=== PATIENT | male | born 1975 | race Caucasian/White ===

== ENCOUNTER 2020-04-06 17:48 | Emergency (ER) | payer OTHER, SELFPAY ==
--- NOTE | 2020-04-06 17:57 | ED.NECK ---
HPI - Neck Pain/Injury General Chief Complaint: Neck Pain/Injury Stated Complaint: Neck pain Time Seen by Provider: 04/06/20 17:57 Source: patient and RN notes reviewed Mode of arrival: ambulatory Limitations: no limitations History of Present Illness HPI Narrative: 44-year-old male presents to urgent care with complaints of right lateral neck pain for 6-7 days. No midline tenderness. No trauma. No loss of bowel or bladder. No retention of bowel or bladder. No extremity numbness tingling. Walks with a normal gait. Patient reports that he was laying on a couch or slept on a couch and woke up started having the right-sided neck pain. Pain is worse with movements. No meningeal signs. Related Data Allergies Allergy/AdvReac Type Severity Reaction Status Date / Time No Known Allergies Allergy Verified 04/06/20 18:07 Review of Systems Review of Systems: Narrative: CONSTITUTIONAL: Denies fever, chills, or sweats. EYES: Denies visual changes, redness, or discharge. ENT: Denies rhinorrhea, congestion, sore throat, or otalgia. CARDIOVASCULAR: Denies chest pain, palpitations, or edema. RESPIRATORY: Denies cough or dyspnea. GASTROINTESTINAL: Denies abdominal pain, nausea, vomiting, or diarrhea. GENITOURINARY: Denies dysuria or hematuria. SKIN: Denies rash or itching. MUSCULOSKELETAL: Denies back pain, joint pain, or myalgia. Positive for right-sided neck pain NEUROLOGIC: Denies headache, numbness, or weakness. PSYCHIATRIC: Denies anxiety or depression. All other systems reviewed are negative, except as documented in HPI. PMFSH Comments At the time of my signature, I reviewed and agree with the nursing past medical, surgical, social, and family history. There is no relevant family history pertinent to the patient complaint. Exam Narrative: Exam Narrative: GENERAL: This is a well-nourished, well-developed patient, in no apparent distress. Morbidly obese HEAD: normocephalic, atraumatic. EYES: PERRL. Sclera clear/white. Vision is grossly intact. EARS: External ears normal, auditory canals clear and without drainage, TMs normal without perforation. Hearing grossly intact. NOSE: External nose normal with no obvious nasal discharge, nares without redness, no rhinorrhea. THROAT: Mucous membranes moist, posterior pharynx clear. NECK: Neck supple, without lymphadenopathy, masses or thyromegaly. Tenderness right lateral, trapezius into right shoulder. Worse with movements. No signs of infection. CARDIOVASCULAR: Regular rate and rhythm without murmurs, gallops, or rubs. RESPIRATORY: Clear to auscultation. Breath sounds equal bilaterally. No wheezes, rales, or rhonchi. GASTROINTESTINAL: Abdomen soft, non-tender, nondistended. Bowel sounds are active. No hepato-splenomegaly, or palpable masses. No guarding. SKIN: warm, intact with no suspicious lesions or rash, good texture and turgor. NEURO: awake, alert, and oriented to person, place and time. There were no obvious focal neurologic abnormalities. EXTREMITIES: No clubbing, cyanosis, or edema. No joint tenderness, effusion, or edema noted. No calf tenderness. Negative Homans sign bilaterally. BACK: Nontender without deformity or crepitance. No flank tenderness. Neck: Neck images: 1. Tenderness to palpation and with movement. Radiating into posterior upper back and right shoulder. Pain increases with range of motion of shoulder. Able to shrug without issue against resistance MDM - Neck Pain/Injury Differential Diagnosis Differential diagnosis: Likely disc disorder of cervical region, whiplash injury to neck, cervical radiculopathy, cervical spondylosis and strain of neck muscle Discharge Plan Discharge Clinical Impression: Strain of cervical portion of right trapezius muscle Patient Disposition: Home, Self-Care Condition: Stable Instructions: Muscle Spasm (ED) Additional Instructions: It is important that you not lift anything more than 10 pounds. It is important you follow-u
[2020-04-06 17:59] VITALS: BP 155/89; PULSE 99; RESP 20; TEMP 36.9; O2SAT 99
== END 2020-04-06 18:23 | disposition home or self-care (01) ==
PROVIDERS: Emergency Provider Nurse Practitioner
DX: S46.811A Strain of other muscles, fascia and tendons at shoulder and upper arm level, right arm, initial encounter (principal); X58.XXXA Exposure to other specified factors, initial encounter
CPT/HCPCS: 99213; G0463

== ENCOUNTER 2021-03-12 18:48 | Emergency (ER) | payer OTHER, SELFPAY ==
--- NOTE | 2021-03-12 19:22 | PC.NURSE ---
Pt called for triage for 2nd time. No answer.
== END 2021-03-13 05:28 | disposition left against medical advice (07) ==
LOC: ANHED 19:30
DX: Z53.21 Procedure and treatment not carried out due to patient leaving prior to being seen by health care provider (principal)
CPT/HCPCS: 99199

== ENCOUNTER 2024-04-08 08:04 | Emergency (ER) | payer OTHER, SELFPAY ==
--- NOTE | ~2024-04-08 | US_ITS ---
RIGHT LOWER EXTREMITY VENOUS ULTRASOUND Ordering provider: Pamela Johnson MD History: . Swollen, tender, rule out deep vein thrombosis . Comparison: None. FINDINGS: --COMMON FEMORAL: Patent and free of thrombus. Normal compressibility, phasic flow and augmentation. --PROXIMAL SUPERFICIAL FEMORAL: Patent and free of thrombus. Normal compressibility, phasic flow and augmentation. --DISTAL SUPERFICIAL FEMORAL: Patent and free of thrombus. Normal compressibility, phasic flow and au gmentation. --POPLITEAL: Patent and free of thrombus. Normal compressibility, phasic flow and augmentation. --POSTERIOR TIBIAL: Patent and free of thrombus. Normal compressibility, phasic flow and augmentation . IMPRESSION: Negative right lower extremity venous US. No deep vein thrombosis. Reviewed, dictated and finalized at location A. [employer]
--- NOTE | ~2024-04-08 | XR_ITS ---
EXAMINATION: XR chest 1V portable DATE: 04/08/2024 09:43 INDICATION: 2 days of leg swelling TECHNIQUE: frontal view of the chest was obtained. COMPARISON: None FINDINGS: The lungs are clear with no focal airspace opacities, pulmonary edema, pleural effusion or pneumothor ax. The cardiomediastinal silhouette is normal. Visualized bones and soft tissues are unremarkable. IMPRESSION: 1. No acute cardiopulmonary disease. Reviewed, dictated and finalized at location B. ESTATE LEASING MANAGER
[2024-04-08 08:09] VITALS: BP 160/91; PULSE 100; RESP 22; TEMP 36.5; O2SAT 100
[2024-04-08 08:40] LABS: Basophils Absolute Auto 0.1 K/mm3 (0.0-0.1); Basophils Percent Auto 0.7 % (0.2-1.2); Eosinophils Absolute Auto 0.3 K/mm3 (0-0.3); Eosinophils Percent Auto 3.2 % (0-4.4); Hematocrit 48.8 % (42.0-52.0); Hemoglobin 15.5 g/dL (14.0-18.0); Immature Granulocyte Absolute 0.02 K/mm3 (0.00-0.031); Immature Granulocyte Percent A 0.2 % (0-0.5); Lymphocytes Absolute Auto 3.95 K/mm3 (0.9-3.2); Lymphocytes Percent Auto 38.3 % (18.3-44.2); Mean Corpuscular HGB Conc 31.8 g/dl (32-36); Mean Corpuscular Hemoglobin 29.8 pg (26-34); Mean Corpuscular Volume 93.8 fl (80-100); Mean Platelet Volume 9.6 fl (7.4-10.4); Monocytes Percent Auto 9.8 % (2.6-8.5); Neutrophils Absolute Auto 4.9 K/mm3 (1.3-6.7); Neutrophils Percent Auto 47.8 % (45.5-73.1); Platelet Count Result 240 k/mm3 (150-375); Red Cell Distribution Width 12.4 % (11.5-14.5); White Blood Count 10.3 K/mm3 (4.5-10.0)
--- NOTE | 2024-04-08 08:45 | ED_ITS ---
HPI - Extremity Problem General Chief complaint: Extremity Problem,Nontraumatic Stated complaint: right leg swelling Time Seen by Provider: 04/08/24 08:44 Source: patient Mode of arrival: ambulatory Limitations: no limitations History of Present Illness HPI Narrative: 48 years old white male drove himself to the emergency room complaining of right leg pain and swelling started 3 days ago. Patient denies any trauma. Patient does not take medicine at home, last time was seen by Over 20 years ago. He does smoke cigarettes, denied drinking alcohol or uses drugs. Patient denies any chest pain or shortness of breath. Related Data Allergies Allergy/AdvReac Type Severity Reaction Status Date / Time No Known Allergies Allergy Verified 04/08/24 08:14 Review of Systems 2 Review of Systems: All systems reviewed & are unremarkable except as noted in HPI and below Exam 2 Narrative: General appearance: Well-developed, well-nourished Skin: Normal color Head: Normocephalic, nontraumatic Neck: Supple, nontender Chest and respiratory: Airway patent, no respiratory distress, no accessory muscle use Heart: Regular rate/rhythm Abdomen: Soft, nontender, no organomegaly, quiet bowel sounds Vascular: Normal peripheral pulses, normal capillary refill. Musculoskeletal: Right lower leg showing diffuse tenderness, swollen,, slightly erythematous, severe tenderness posteriorly,, no open wound, 1+ edema Neurologic: Alert and oriented ?3, ASSISTANT PROFESSOR OF MUSIC is normal as tested, no gross motor deficit Course Vital Signs Vital signs: Vital Signs Temperature 36.5 C 04/08/24 08:09 Pulse Rate 100 04/08/24 08:09 Respiratory Rate 22 H 04/08/24 08:09 Blood Pressure 160/91 H 04/08/24 08:09 Pulse Oximetry 100 04/08/24 08:09 Oxygen Delivery Room Air 04/08/24 08:09 Temperature 36.5 C 04/08/24 08:09 Pulse Rate 100 04/08/24 08:09 Respiratory Rate 22 H 04/08/24 08:09 Blood Pressure 160/91 H 04/08/24 08:09 Pulse Oximetry 100 04/08/24 08:09 Oxygen Delivery Room Air 04/08/24 08:09 MDM - Extremity (Nontraumatic) MDM Narrative Medical decision making narrative: Patient came to the ED with swelling and pain of the right lower leg started 3 days ago Vital signs showing blood pressure 160/91 respiratory rate 22 otherwise insignificant Physical examination showing tenderness swelling of the right lower leg compared to the left 1 Differential diagnosis include deep vein thrombosis, hematoma, cellulitis, muscular strain/sprain Blood workup today includes CBC, CMP, PT PTT showed WBC of 10.3, otherwise insignificant abnormalities venous Doppler right lower leg showed no deep vein thrombosis Chest x-ray showed no acute abnormalities. Patient pain of the right lower extremity is unknown at this time. My recommendation anti-inflammatory medicine, leg elevation, compression stocking and follow up with family physician for further evaluation. Discharge the pt was discharged to home.the pt,s condition upon discharge was fair,education was provided to the pt in reference to the final impression,discharge study results,treatment,prognosis and need for follow up . Differential Diagnosis Differential diagnosis: Likely other (As above) Lab Data 04/08/24 08:33 04/08/24 09:02 Labs: Lab Results 04/08/24 04/08/24 04/08/24 Range/Units 08:33 08:54 09:02 WBC 10.3 H (4.5-10.0) K/mm3 RBC 5.20 (4.6-6.20) M/mm3 Hgb 15.5 (14.0-18.0) g/dL Hct 48.8 (42.0-52.0) % MCV 93.8 (80-100) fl MCH 29.8 (26-34) pg MCHC 31.8 L (32-36) g/dl RDW 12.4 (11.5-14.5) % Plt Count 240 (150-375) k/mm3 MPV 9.6 (7.4-10.4) fl Immature Gran % (Auto) 0.2 (0-0.5) % Neut % (Auto) 47.8 (45.5-73.1) % Lymph % (Auto) 38.3 (18.3-44.2) % Dickinson % (Auto) 9.8 H (2.6-8.5) % Eos % (Auto) 3.2 (0-4.4) % Baso % (Auto) 0.7 (0.2-1.2) % Lymph # (Auto) 3.95 H (0.9-3.2) K/mm3 Dickinson # (Auto) 1.0 H (0.1-0.6) K/mm3 Eos # (Auto) 0.3 (0-0.3) K/mm3 Baso # (Auto) 0.1 (0.0-0.1) K/mm3 Abs Immat Gran (auto) 0.02 (0.00-0.031) K/mm3 Absolute Neuts (auto) 4.9 (1.3-6.7) K/mm3 Absolute Nucleated RBC 0.000 (0.0-0.012) K/mm3 Nucleated RBC % 0.0 (0.0-0.2) % PT (11.1-14.7) Seconds INR APTT (22.3-36.8) Seconds Sodium 136 L (137-145) mmol/L Potassium 3.9 (3.4-5.0) mmol/L Chloride 105 (98-107) mmol/L Carbon Dioxide 26 (22-30) mmol/L Anion Gap 5 (4-12) mmol/L BUN 17 (9-20) mg/dL Creatinine 0.90 (0.7-1.3) mg/dL Estim Creat Clear Calc 101 ml/min Estimated GFR > 60 (59 - ) Glucose 102 (65-110) mg/dL Lactic Acid 1.4 (0.7-2.0) mmol/L Calcium 8.2 L (8.4-10.2) mg/dL Total Bilirubin 0.5 (0.2-1.3) mg/dL AST 21 (17-59) U/L ALT 21 (6-50) U/L Alkaline Phosphatase 48 (38-126) U/L NT-Pro-B Natriuret Pep (19.9-100) pg/mL Total Protein 7.0 (6.3-8.2) g/dL Albumin 3.6 (3.5-5.1) g/dL 04/08/24 Range/Units 09:40 WBC (4.5-10.0) K/mm3 RBC (4.6-6.20) M/mm3 Hgb (14.0-18.0) g/dL Hct (42.0-52.0) % MCV (80-100) fl MCH (26-34) pg MCHC (32-36) g/dl RDW (11.5-14.5) % Plt Count (150-375) k/mm3 MPV (7.4-10.4) fl Immature Gran % (Auto) (0-0.5) % Neut % (Auto) (45.5-73.1) % Lymph % (Auto) (18.3-44.2) % Dickinson % (Auto) (2.6-8.5) % Eos % (Auto) (0-4.4) % Baso % (Auto) (0.2-1.2) % Lymph # (Auto) (0.9-3.2) K/mm3 Dickinson # (Auto) (0.1-0.6) K/mm3 Eos # (Auto) (0-0.3) K/mm3 Baso # (Auto) (0.0-0.1) K/mm3 Abs Immat Gran (auto) (0.00-0.031) K/mm3 Absolute Neuts (auto) (1.3-6.7) K/mm3 Absolute Nucleated RBC (0.0-0.012) K/mm3 Nucleated RBC % (0.0-0.2) % PT 15.2 H (11.1-14.7) Seconds INR 1.2 APTT 27.7 (22.3-36.8) Seconds Sodium (137-145) mmol/L Potassium (3.4-5.0) mmol/L Chloride (98-107) mmol/L Carbon Dioxide (22-30) mmol/L Anion Gap (4-12) mmol/L BUN (9-20) mg/dL Creatinine (0.7-1.3) mg/dL Estim Creat Clear Calc ml/min Estimated GFR (59 - ) Glucose (65-110) mg/dL Lactic Acid (0.7-2.0) mmol/L Calcium (8.4-10.2) mg/dL Total Bilirubin (0.2-1.3) mg/dL AST (17-59) U/L ALT (6-50) U/L Alkaline Phosphatase (38-126) U/L NT-Pro-B Natriuret Pep < 20 (19.9-100) pg/mL Total Protein (6.3-8.2) g/dL Albumin (3.5-5.1) g/dL Critical Care Time Critical Care Time Critical Care Time: No Discharge Plan Discharge Clinical Impression: Acute leg pain, Cellulitis of leg, right Patient Disposition: Home, Self-Care Condition: Stable Instructions: Antibiotic Form, Cellulitis (ED), Leg Pain (ED) Additional Instructions: Return if symptoms are worsening , call your family physician for appointment, take Tylenol, ibuprofen as as needed for aches and pain, continue home medications. Keep leg elevated Patient Language: Nigerian Prescriptions: New cephalexin 500 mg capsule 500 mg PO Q6H Qty: 40 0RF ibuprofen 600 mg tablet 600 mg PO Q6H PRN (Reason: pain) Qty: 20 0RF Follow-up/Referrals: Christoph Troy MD [Physician] - UNKNOWN,DOCTOR [Primary Care Provider] -
[2024-04-08 09:12] LABS: Lactic Acid Reflex 1.4 mmol/L (0.7-2.0)
[2024-04-08 09:20] LABS: Alanine Aminotransferase 21 U/L (6-50); Albumin Level 3.6 g/dL (3.5-5.1); Alkaline Phosphatase 48 U/L (38-126); Anion Gap 5 mmol/L (4-12); Aspartate Amino Transferase 21 U/L (17-59); Bilirubin,Total 0.5 mg/dL (0.2-1.3); Blood Urea Nitrogen 17 mg/dL (9-20); Calcium 8.2 mg/dL (8.4-10.2); Carbon Dioxide 26 mmol/L (22-30); Chloride 105 mmol/L (98-107); Estimated CRCL calculation 101 ml/min; Estimated Glomerular Filt Rate > 60; Glucose 102 mg/dL (65-110); Potassium 3.9 mmol/L (3.4-5.0); Sodium 136 mmol/L (137-145)
[2024-04-08 09:58] LABS: INR 1.2; Partial Thromboplastin Time 27.7 Seconds (22.3-36.8); Prothrombin Time 15.2 Seconds (11.1-14.7)
[2024-04-08 10:04] LABS: NT Pro B Type Natriuretic Pept < 20 pg/mL (19.9-100)
[2024-04-08 10:36] VITALS: BP 131/92; PULSE 69; RESP 20; O2SAT 100
== END 2024-04-08 10:40 | disposition home or self-care (01) ==
PROVIDERS: Emergency Provider Emergency Medicine
DX: L03.115 Cellulitis of right lower limb (principal); M79.661 Pain in right lower leg
CPT/HCPCS: 36415; 71045; 80053; 83605; 83880; 85025; 85610; 85730; 87040; 93971; 99284

== ENCOUNTER 2024-04-28 15:38 | Emergency (ER) | payer OTHER, SELFPAY ==
--- OUTSIDE RECORDS SUMMARY | 2024-04-28 15:41 | XMS_ITS | Referral Summary ---
Author Organization [facility] Address [address] [place] [address] Care Team Providers Care Shell Worker Name Role Phone Unavailable Primary Care Provider Unavailabl e Source Comments [facility],non-owned Affiliates and Associated Physician Practices is amultiple site organization consisting of ambulatory clinics and hospital sitesin [place], [place] and [place]. This disclosure is being madepursuant to the Care Everywhere program and may not contain all information available regarding this patient. Last updated 17.[facility] Allergies No known active allergies Medications * Be aware that medications may not be up to date on this document. Alwaysverify current medications with the patient. Medication Sig Dispensed Refills Start Date End Date Status bacitracin ointmentIndications:T raumatic amputation of left thumb, initial encounter Apply to affected area once daily (RIGHT THUMB) 14 g 1 06/20/2022 Active Active Problems No known active problems Immunizations Name Administration Dates Next Due TDAP (7yrs+) 06/12/2022 Social History Tobacco Use Types Packs/Day Years Used Date Smoking Tobacco: Every Day Cigarettes Smokeless Tobacco: Never Tobacco Cessation:Ready to Q uit: Not Asked; Counseling Given: No Sex and Gender Information Value Date Recorded Sex Assigned at Not on file Gender Identity Not on file Sexual Orientation Not on file Last Filed Vital Signs Vital Sign Reading Time Taken Comments Blood Pressure 135/93 07/25/2022 1:45 PM CDT Pulse 89 07/25/2022 1:45 PM CDT Temperature 37 ??C (98.6 ??F) 07/25/2022 1:45 PM CDT Respiratory Rate 18 07/25/2022 1:45 PM CDT Oxygen Saturation 97% 07/25/2022 1:45 PM CDT Inhaled Oxygen Concentration - - Weight 106.4 kg (234 lb 9.6 oz) 07/25/2022 1:45 PM CDT Height 172.7 cm (5' 8 ) 07/25/2022 1:45 PM CDT Body Mass Index 35.67 07/25/2022 1:45 PM CDT Plan of Treatment Not on file Procedures Procedure Name Priority Date/Time Associated Diagnosis Comments COMPREHENSIVE METABOLIC PANEL STAT 06/12/2022 3:17 PM CDT from Last 3 Months or Most Recently Relevant to Health Maintenance Results * (ABNORMAL) COMPREHENSIVE METABOLIC PANEL (06/12/2022 3:17 PM CDT) BUN 24 7 - 26 mg/dL 06/12/2022 3:54 PM [facility] Creatinine 1.18(H) 0.71 - 1.16 mg/dL 06/12/2022 3:54 PM [facility] Sodium 137 136 - 145 mmol/L 06/12/2022 3:54 PM [facility] Potassium 4.3 3.5 - 4.5 mmol/L 06/12/2022 3:54 PM [facility] Chloride 104 98 - 107 mmol/L 06/12/2022 3:54 PM [facility] CO2 27 22 - 29 mmol/L 06/12/2022 3:54 PM [facility] Glucose 93 70 - 115 mg/dL 06/12/2022 3:54 PM [facility] Calcium 8.7 8.4 - 10.2 mg/dL 06/12/2022 3:54 PM [facility] Protein Total 6.7 6.0 - 8.3 g/dL 06/12/2022 3:54 PM [facility] Albumin 3.6 3.4 - 5.0 g/dL 06/12/2022 3:54 PM [facility] Bilirubin Total 0.5 0.2 - 1.2 mg/dL 06/12/2022 3:54 PM [facility] Alkaline Phosphatase 48 40 - 150 U/L 06/12/2022 3:54 PM [facility] ALT 40 5 - 55 U/L 06/12/2022 3:54 PM [facility] AST 29 5 - 34 U/L 06/12/2022 3:54 PM [facility] Anion Gap 10 8 - 18 06/12/2022 3:54 PM [facility] BUN/Creatinine Ratio 20 7 - 23 06/12/2022 3:54 PM [facility] Osmolality Calculated 288 270 - 300 mOsm/kg 06/12/2022 3:54 PM [facility] Albumin/Globulin Ratio 1.2 1.1 - 2.3 06/12/2022 3:54 PM [facility] eGFR by CKD-EPI 77(L) >=90 mL/min/1.7 3 m2 06/12/2022 3:54 PM [facility] Blood BLOOD SPECIMEN / Unknown Venipuncture / Unknown 06/12/2022 3:17 PM CDT 06/12/2022 3:26 PM CDT Bryan Wade MD LAB - CHEMISTRY CORA MCCLAIN [facility] Organization Address City/State/ZIP Co de Phone Number [facility] [address] [place] [address], [facility] [phone] from Last 3 Months or Most Recently Relevant to Health Maintenance
--- OUTSIDE RECORDS SUMMARY | 2024-04-28 15:41 | XMS_ITS | CONTINUITY OF CARE DOCUMENT ---
Author Name ladonna dougherty Address Unknown Organization [facility] Address [address] [place] [address] Phone [phone] Care Team Providers Care Pulp And Paper Tester Name Role Phone Aamir Sheets MD Unavailable [phone] INSURANCE PROVIDERS Payer name Policy type / Coverage type [place] [employer] party ID [id number] PAY [id number]
--- OUTSIDE RECORDS SUMMARY | 2024-04-28 15:41 | XMS_ITS | Clinical Summary ---
Author Organization [facility] Address [address] [place] [address] Care Team Providers Care Equine Intern Name Role Phone Unavailable Primary Care Provider Unavailabl e Source Comments [facility],non-owned Affiliates and Associated Physician Practices is amultiple site organization consisting of ambulatory clinics and hospital sitesin [place], [place], [place] and [place]. This disclosure is being madepursuant to the Care Everywhere program and may not contain all information available regarding this patient. Last updated [facility] Allergies No known active allergies Medications * [...] 07/25/2022 1:45 PM CDT Plan of Treatment Health Maintenance Due Date Last Done Comments COLOGUARD (AGES 45-75) - COL ON CA SCREENING 1974 COLON MONITORING 1974 COLONOSCOPY - COLON CA SCREENING 1974 CT COLONOGRAPHY - COLON CA SCREENING 1974 Colorectal Cancer Screening 1974 FIT - COLON CA SCREENING 1974 FLEX SIG - COLON CA SCREENING 1974 LIPID TESTING 1974 HIV SCREENING 1989 HEPATITIS C SCREENING 08/29/1992 HEPATITIS B VACCINE (1 of 3 - 19+ 3-dose series) 1993 PNEUMOCOCCAL VACCINE (1 of 2 - PCV) 1993 COVID-19 VACCINE ( - 2023-2 5 season) 2023 INFLUENZA VACCINE (#1) 2023 DEPRESSION SCREENING 03/27/2024 ZOSTER VACCINE (1 of 2) 2024 SCREENING FOR DIABETES 06/12/2025 06/12/2022 DTAP/TDAP/TD VACCINES (2 - T d or Tdap) 06/12/2032 06/12/2022 HIB VACCINE Aged Out No longer eligi ble based on patient's age to complete this topic HPV VACCINE Aged Out No longer eligi ble based on patient's age to complete this topic MENINGOCOCCAL (Group B) VACCINE Aged Out No longer eligible based on patient's age to complete this topic MENINGOCOCCAL VACCINE Aged Out No eliza catherine eligible based on patient's age to complete this topic Procedures Procedure Name Priority Date/Time Associated Diagnosis Comments COMPREHENSIVE METABOLIC PANEL STAT 06/12/2022 3:17 PM CDT from Last 3 Months or Most Recently Relevant to Health Maintenance Results * (ABNORMAL) COMPREHENSIVE METABOLIC PANEL (06/12/2022 3:17 PM CDT) BUN 24 7 - 26 mg/dL 06/12/2022 3:54 PM [facility] Creatinine 1.18(H) 0.71 - 1.16 mg/dL 06/12/2022 3:54 PM [facility] Sodium 137 136 - 145 mmol/L 06/12/2022 3:54 PM [facility] Potassium 4.3 3.5 - 4.5 mmol/L 06/12/2022 3:54 PM [facility] Chloride 104 98 - 107 mmol/L 06/12/2022 3:54 PM [facility] CO2 27 22 - 29 mmol/L 06/12/2022 3:54 PM [facility] Glucose 93 70 - 115 mg/dL 06/12/2022 3:54 PM [facility] Calcium 8.7 8.4 - 10.2 mg/dL 06/12/2022 3:54 PM [facility] Protein Total 6.7 6.0 - 8.3 g/dL 06/12/2022 3:54 PM [facility] Albumin 3.6 3.4 - 5.0 g/dL 06/12/2022 3:54 PM [facility] Bilirubin Total 0.5 0.2 - 1.2 mg/dL 06/12/2022 3:54 PM [facility] Alkaline Phosphatase 48 40 - 150 U/L 06/12/2022 3:54 PM [facility] ALT 40 5 - 55 U/L 06/12/2022 3:54 PM [facility] AST 29 5 - 34 U/L 06/12/2022 3:54 PM [facility] Anion Gap 10 8 - 18 06/12/2022 3:54 PM [facility] BUN/Creatinine Ratio 20 7 - 23 06/12/2022 3:54 PM [facility] Osmolality Calculated 288 270 - 300 mOsm/kg 06/12/2022 3:54 PM [facility] Albumin/Globulin Ratio 1.2 1.1 - 2.3 06/12/2022 3:54 PM [facility] eGFR by CKD-EPI 77(L) >=90 mL/min/1.7 3 m2 06/12/2022 3:54 PM [facility] Blood BLOOD SPECIMEN / Unknown Venipuncture / Unknown 06/12/2022 3:17 PM CDT 06/12/2022 3:26 PM CDT Bryan Wade MD LAB - CHEMISTRY CORA MCCLAIN Performing Organization Address City/State/[facility] Co de Phone Number [facility] [address] [place] [address], [facility] [phone] from Last 3 Months or Most Recently Relevant to Health Maintenance
--- OUTSIDE RECORDS SUMMARY | 2024-04-28 15:41 | XMS_ITS | Patient Health Summary ---
Author Organization [facility] [employer] Address [address] [place] [address] Care Team Providers Care Customer Response Representative Name Role Phone Unavailable Primary Care Provider Unavailabl e Note from [facility] [employer] [facility],non-owned Affiliates and Associated Physician Practices is amultiple site organization consisting of ambulatory clinics and hospital sitesin [place], [place], [place] and [place]. This disclosure is being madepursuant to the Care Everywhere program and may not contain all information available regarding this patient. Last updated 17.[facility] [employer] Allergies No known active allergies Medications * Be aware that medications may not be up to date on this document. Alwaysverify current medications with the patient. * bacitracin ointment(Started 06/20/2022) Apply to affected area once daily (RIGHT THUMB) 1 refill by 06/20/2023 Active Problems No known active problems Immunizations * TDAP (7yrs+)(Given 06/12/2022) Social History Tobacco Use Types Packs/Day Years [...] Mass Index 35.67 07/25/2022 1:45 PM CDT Procedures * XR HAND LEFT 3VW OR MORE(Performed 06/20/2022) Performed for Thumb injury, initial encounter * TYPE + SCREEN PANEL(Performed 06/12/2022) * PT-INR [facility](Performed 06/12/2022) * COMPREHENSIVE METABOLIC PANEL(Performed 06/12/2022) * CBC W AUTO DIFFERENTIAL(Performed 06/12/2022) * XR HAND LEFT 3VW OR MORE(Performed 06/12/2022) Performed for Thumb laceration, left, initial encounter, Traumatic amputation of left thumb, initial encounter * ED DIGITAL BLOCK(Performed 06/12/2022) Performed for Traumatic amputation of left thumb, initial encounter Results * XR HAND LEFT 3VW OR MORE (06/20/2022 9:40 AM CDT) Only the most recent of2 resultswithin the time period is included. Anatomical Region Laterality Modality Wrist / Hand Radiographic Ssuan ging 06/20/2022 10:0 8 AM CDT Impressions 06/20/2022 10:53 AM CDT IMPRESSION: There is soft tissue laceration of the left thumb tip with fractures of the tuft of the distal phalanx status post treatment. Joint spaces of the left hand are normal. Report drafted by Jeff Kunz MD (vice president of advertising) I, Marlon Spencer MD have personally reviewed and interpreted this examination/study. > Interpreting Provider: Marlon Spencer MD on 06/20/2022 10:53 AM Narrative 06/20/2022 10:53 AM CDT Me PROCEDURE: ??XR HAND LEFT 3VW OR MORE, DATE/TIME OF EXAM: ??06/20/2022 9:40 AM, LOCATION ??[facility] INDICATION: S69.90XA: Thumb injury, initial encounter ADDITIONAL CLINICAL INFORMATION: COMPARISON: 06/12/2022. FINDINGS: Procedure Note Marlon Spencer MD - 06/20/2022 Me PROCEDURE: XR HAND LEFT 3VW OR MORE, DATE/TIME OF EXAM: 39:40 AM, LOCATION [facility] INDICATION: S69.90XA: Thumb injury, initial encounter ADDITIONAL CLINICAL INFORMATION: COMPARISON: 06/12/2022. FINDINGS: IMPRESSION: There is soft tissue laceration of the left thumb tip with fractures ofthe tuft of the distal phalanx status post treatment. Joint spaces of theleft hand are normal. Report drafted by Jeff Kunz MD (vice president of advertising) I, Marlon Spencer MD have personally reviewed and interpreted this examination/study. > Interpreting Provider: Marlon Spencer MD on 06/20/2022 10:53 AM Hamida Tolentino MD DIAGNOSTIC IMAGING ORDERABLES * PT-INR [facility] (06/12/2022 3:17 PM CDT) PT 14.4 12.1 - 14.8 Seconds 06/12/2022 3:49 PM CDT [facility] INR 1.1 See Comment 06/12/2022 3:49 PM CDT [facility] Comment:The suggested therap eutic range for standard coumadin (warfarin) therapy is an INR of 2.0-3.0. For high-risk patients (Mechanical Mitral Valve Prosthesis, etc.), the suggested prophylactic therapeutic range is an INR of 2.5-3.5. Blood BLOOD SPECIMEN / Unknown Venipuncture / Unknown 06/12/2022 3:17 PM CDT 06/12/2022 3:26 PM CDT Bryan Wade MD LAB - COAGULATION OR DERABLES [facility] [address] [place] [address], [facility] [phone] * TYPE + SCREEN PANEL (06/12/2022 3:17 PM CDT) Antibody Screen NEG 3:58 PM CDT [facility] B[facility] LAB ABO Rh A POS 06/12/2022 3:58 PM CDT [facility] Blood Bank BLOOD SPECIMEN / Unknown Venipuncture / Unknown 06/12/2022 3:17 PM CDT 06/12/2022 3:21 PM CDT Bryan Wade MD LAB - BLOOD BANK ORD ERABLES [facility] [address] [place] [address], [facility] [phone] * (ABNORMAL) CBC W AUTO DIFFERENTIAL (06/12/2022 3:17 PM CDT) WBC 9.6 3.5 - 10.5 10? 3 /uL 06/12/2022 3:31 PM CDT [facility] RBC 4.67 4.30 - 5.70 10? 6 /uL 06/12/2022 3:31 PM [facility] Hemoglobin 13.7 12.0 - 17.6 g/dL 06/12/2022 3:31 PM [facility] Hematocrit 42.6 35.2 - 51.7 % 06/12/2022 3:31 PM [facility] MCV 91.2 80.7 - 98.3 fL 06/12/2022 3:31 PM [facility] MCH 29.3 26.7 - 34.0 pg 06/12/2022 3:31 PM [facility] MCHC 32.2 30.8 - 35.9 g/dL 06/12/2022 3:31 PM [facility] RDW-SD 42.1 36.0 - 50.0 fL 06/12/2022 3:31 PM [facility] RDW-CV 12.7 11.2 - 14.8 % 06/12/2022 3:31 PM [facility] Platelet Count 268 150 - 400 10? 3 /uL 06/12/2022 3:31 PM [facility] MPV 9.2(L) 9.4 - 12.9 fL 06/12/2022 3:31 PM [facility] nRBC Absolute 0.00 0 10? 3 /uL 06/12/2022 3:31 PM [facility] nRBC Auto 0.0 0 /100 WBC 06/12/2022 3:31 PM CDT [facility] Neutrophils % 59.1 35.0 - 70.0 % 06/12/2022 3:31 PM [facility] Lymphocytes % 31.6 20.0 - 43.0 % 06/12/2022 3:31 PM [facility] Monocytes % 7.5 5.0 - 13.0 % 06/12/2022 3:31 PM [facility] Eosinophils % 1.0 0.0 - 6.0 % 06/12/2022 3:31 PM T [facility] Basophil % 0.5 0.0 - 2.0 % 06/12/2022 3:31 PM T [facility] Neutrophils Absolute 5.65 1.60 - 7.00 10? 3 /uL 06/12/2022 3:31 PM T [facility] Lymphocyte Absolute 3.02 1.10 - 3.90 10? 3 /uL 06/12/2022 3:31 PM CDT [facility] Monocytes Absolute 0.72 0.26 - 1.07 10? 3 /uL 06/12/2022 3:31 PM T [facility] Eosinophils Absolute 0.10 0.00 - 0.47 10? 3 /uL 06/12/2022 3:31 PM T [facility] Basophils Absolute 0.05 0.00 - 0.08 10? 3 /uL 06/12/2022 3:31 PM [facility] Immature Granulocytes % 0.3 0.0 - 1.0 % 06/12/2022 3:31 PM T [facility] Immature Granulocytes Absolute 0.03 06/12/2022 3:31 PM [facility] Blood BLOOD SPECIMEN / Unknown Venipuncture / Unknown 06/12/2022 3:17 PM CDT 06/12/2022 3:26 PM CDT Bryan Wade MD LAB - HEMATOLOGY ORD ERABLES [facility] [address] [place] [address], [facility] [phone] * (ABNORMAL) COMPREHENSIVE METABOLIC PANEL (06/12/2022 3:17 PM [facility]) BUN 24 7 - 26 mg/dL 06/12/2022 3:54 PM [facility] Creatinine 1.18(H) 0.71 - 1.16 mg/dL 06/12/2022 3:54 PM [facility] Sodium 137 136 - 145 mmol/L 06/12/2022 3:54 PM [facility] Potassium 4.3 3.5 - 4.5 mmol/L 06/12/2022 3:54 PM [facility] Chloride 104 98 - 107 mmol/L 06/12/2022 3:54 PM [facility] CO2 27 22 - 29 mmol/L 06/12/2022 3:54 PM [facility] Glucose 93 70 - 115 mg/dL 06/12/2022 3:54 PM [facility] Calcium 8.7 8.4 - 10.2 mg/dL 06/12/2022 3:54 PM [facility] Protein Total 6.7 6.0 - 8.3 g/dL 06/12/2022 3:54 PM [facility] Albumin 3.6 3.4 - 5.0 g/dL 06/12/2022 3:54 PM [facility] Bilirubin Total 0.5 0.2 - 1.2 mg/dL 06/12/2022 3:54 PM [facility] Alkaline Phosphatase 48 40 - 150 U/L 06/12/2022 3:54 PM [facility] ALT 40 5 - 55 U/L 06/12/2022 3:54 PM [facility] AST 29 5 - 34 U/L 06/12/2022 3:54 PM [facility] Anion Gap 10 8 - 18 06/12/2022 3:54 PM [facility] BUN/Creatinine Ratio 20 7 - 23 06/12/2022 3:54 PM [facility] Osmolality Calculated 288 270 - 300 mOsm/kg 06/12/2022 3:54 PM [facility] Albumin/Globulin Ratio 1.2 1.1 - 2.3 06/12/2022 3:54 PM [facility] eGFR by CKD-EPI 77(L) >=90 mL/min/1.7 3 m2 06/12/2022 3:54 PM CDT [facility] Blood BLOOD SPECIMEN / Unknown Venipuncture / Unknown 06/12/2022 3:17 PM CDT 06/12/2022 3:26 PM CDT Bryan Wade MD LAB - CHEMISTRY [facility] Performing Organization Address City/[facility] Co de Phone Number [facility] [address] [place] [address], [facility] [phone] * Digital Block (06/12/2022 11:51 AM CDT) Narrative Rain Reddy MD - 06/12/2022 11:51 AM CDT Rain Reddy MD ? 06/12/2022 ??3:41 PM Digital Block Date/Time: 06/12/2022 11:51 AM Performed by: Rain Reddy MD Authorized by: Rain Reddy MD Consent: ??Consent obtained: ??Verbal ??Consent given by: ??Patient ??Risks discussed: ??Infection, allergic reaction, nerve damage, intravascular injection and unsuccessful block ??Alternatives discussed: ??No treatment [place] protocol: ??Patient identity confirmed: ??Verbally with patient Indications: ??Indications: ??Pain relief Location: ??Block location: ??Finger ??Finger blocked: ??L thumb Pre-procedure details: ??Neurovascular status: intact ?Procedure prep: ChloraPrep x2. Procedure details: ??Needle gauge: ??27 G ??Anesthetic injected: ??Lidocaine 1% w/o epi ??Technique: ??Metacarpal block ??Injection procedure: ??Incremental injection, negative aspiration for blood and anatomic landmarks identified Post-procedure details: ??Outcome: ??Pain relieved ??Procedure completion: ??Tolerated well, no immediate complications Rain Reddy MD PROCEDURE/MINOR SOMMRE RGICAL ORDERABLES
[2024-04-28 16:43] VITALS: BP 133/90; PULSE 108; RESP 18; TEMP 36.4; O2SAT 99
--- NOTE | 2024-04-28 19:43 | PC.NURSE ---
1st call for a room, no answer.
--- NOTE | 2024-04-28 20:13 | PC.NURSE ---
2nd call no answer
--- OUTSIDE RECORDS SUMMARY | 2024-04-28 20:32 | XMS_ITS | Referral Summary ---
Author Organization [facility] Address [address] [place] [address] Care Team Providers Care Audio Visual Director Name Role Phone Unavailable Primary Care Provider Unavailabl e Source Comments [facility],non-owned Affiliates and Associated Physician Practices is amultiple site organization consisting of ambulatory clinics and hospital sitesin [place], [place], [place] and [place]. This disclosure is being madepursuant to the Care Everywhere program and may not contain all information available regarding this patient. Last updated 17.[employer] [facility] Allergies No known active allergies Medications * [...] 7 - 26 mg/dL 06/12/2022 3:54 PM [facility] Creatinine 1.18(H) 0.71 - 1.16 mg/dL 06/12/2022 3:54 PM [facility] Sodium 137 136 - 145 mmol/L 06/12/2022 3:54 PM [facility] Potassium 4.3 3.5 - 4.5 mmol/L 06/12/2022 3:54 PM [facility] Chloride 104 98 - 107 mmol/L 06/12/2022 3:54 PM [facility] CO2 27 22 - 29 mmol/L 06/12/2022 3:54 PM [facility] Glucose 93 70 - 115 mg/dL 06/12/2022 3:54 PM [facility] Calcium 8.7 8.4 - 10.2 mg/dL 06/12/2022 3:54 PM [facility] Protein Total 6.7 6.0 - 8.3 g/dL 06/12/2022 3:54 PM [facility] Albumin 3.6 3.4 - 5.0 g/dL 06/12/2022 3:54 PM [facility] Bilirubin Total 0.5 0.2 - 1.2 mg/dL 06/12/2022 3:54 PM [facility] Alkaline Phosphatase 48 40 - 150 U/L 06/12/2022 3:54 PM [facility] ALT 40 5 - 55 U/L 06/12/2022 3:54 PM [facility] AST 29 5 - 34 U/L 06/12/2022 3:54 PM [facility] Anion Gap 10 8 - 18 06/12/2022 3:54 PM [facility] BUN/Creatinine Ratio 20 7 - 23 06/12/2022 3:54 PM T [facility] Osmolality Calculated 288 270 - 300 mOsm/kg 06/12/2022 3:54 PM [facility] Albumin/Globulin Ratio 1.2 1.1 - 2.3 06/12/2022 3:54 PM [facility] eGFR by CKD-EPI 77(L) >=90 mL/min/1.7 3 m2 06/12/2022 3:54 PM [facility] Blood BLOOD SPECIMEN / Unknown Venipuncture / Unknown 06/12/2022 3:17 PM CDT 06/12/2022 3:26 PM CDT Bryan Wade MD LAB - CHEMISTRY [facility] Organization Address City/State/ZIP Co de Phone Number [facility] [address] [place] [address], [facility] [phone] from Last 3 Months or Most Recently Relevant to Health Maintenance
--- OUTSIDE RECORDS SUMMARY | 2024-04-28 20:32 | XMS_ITS | Patient Health Summary ---
Author Organization [facility] Address [address] [place] [address] Care Team Providers Care Insulation Worker Apprentice Name Role Phone Unavailable Primary Care Provider Unavailabl e Note from [facility],non-owned Affiliates and Associated Physician Practices is amultiple site organization consisting of ambulatory clinics and hospital sitesin [place], [place], [place] and [place]. This disclosure is being madepursuant to the Care Everywhere program and may not contain all information available regarding this patient. Last updated 17.[facility] Allergies No known active allergies Medications * [...] Region Laterality Modality Wrist / Hand Radiographic Susan ging 06/20/2022 10:0 8 AM CDT Impressions 06/20/2022 10:53 AM CDT IMPRESSION: There is soft tissue laceration of the left thumb tip with fractures of the tuft of the distal phalanx status post treatment. Joint spaces of the left hand are normal. Report drafted by Jeff Kunz MD (university president) I, Marlon Spencer MD have personally reviewed and interpreted this examination/study. > Interpreting Provider: Marlon Spencer MD on 06/20/2022 10:53 AM Narrative 06/20/2022 10:53 AM CDT Me PROCEDURE: ??XR HAND LEFT 3VW OR MORE, DATE/TIME OF EXAM: ??06/20/2022 9:40 AM, LOCATION ??[facility] INDICATION: S69.90XA: Thumb injury, initial encounter ADDITIONAL CLINICAL INFORMATION: COMPARISON: 06/12/2022. FINDINGS: Procedure Note Marlon Spencer MD - 06/20/2022 Me PROCEDURE: XR HAND LEFT 3VW OR MORE, DATE/TIME OF EXAM: 39:40 AM, LOCATION [facility] INDICATION: S69.90XA: Thumb injury, initial encounter ADDITIONAL CLINICAL INFORMATION: COMPARISON: 06/12/2022. FINDINGS: IMPRESSION: There is soft tissue laceration of the left thumb tip with fractures ofthe tuft of the distal phalanx status post treatment. Joint spaces of theleft hand are normal. Report drafted by Jeff Kunz MD (university president) I, Marlon Spencer MD have personally reviewed and interpreted this examination/study. > Interpreting Provider: Marlon Spencer MD on 06/20/2022 10:53 AM Hamida Tolentino MD DIAGNOSTIC IMAGING ORDERABLES * PT-INR [facility] (06/12/2022 3:17 PM CDT) PT 14.4 12.1 - 14.8 Seconds 06/12/2022 3:49 PM CDT [facility] INR 1.1 See Comment 06/12/2022 3:49 PM CDT [facility] Comment:The suggested therap eutic range for standard coumadin (warfarin) therapy is an INR of 2.0-3.0. For high-risk patients (Mechanical Mitral Valve Prosthesis, etc.), the suggested prophylactic therapeutic range is an INR of 2.5-3.5. Blood BLOOD SPECIMEN / Unknown Venipuncture / Unknown 06/12/2022 3:17 PM CDT 06/12/2022 3:26 PM CDT Brayn Wade MD LAB - COAGULATION OR DERABLES [facility] [address] [place] [address], [facility] [phone] * TYPE + SCREEN PANEL (06/12/2022 3:17 PM CDT) Antibody Screen NEG 3:58 PM CDT [facility] BLOOD BANK LAB ABO Rh A POS 06/12/2022 3:58 PM CDT [facility] BLOOD BANK LAB Blood Bank BLOOD SPECIMEN / Unknown Venipuncture / Unknown 06/12/2022 3:17 PM CDT 06/12/2022 3:21 PM CDT Bryan Wade MD LAB - BLOOD BANK ORD ERABLES [facility] [address] [place] [address], [facility] [phone] * (ABNORMAL) CBC W AUTO DIFFERENTIAL (06/12/2022 3:17 PM CDT) WBC 9.6 3.5 - 10.5 10? 3 /uL 06/12/2022 3:31 PM CDT [facility] RBC 4.67 4.30 - 5.70 10? 6 /uL 06/12/2022 3:31 PM [facility] Hemoglobin 13.7 12.0 - 17.6 g/dL 06/12/2022 3:31 PM [facility] Hematocrit 42.6 35.2 - 51.7 % 06/12/2022 3:31 PM [facility] MCV 91.2 80.7 - 98.3 fL 06/12/2022 3:31 PM [facility] MCH 29.3 26.7 - 34.0 pg 06/12/2022 3:31 PM [facility] MCHC 32.2 30.8 - 35.9 g/dL 06/12/2022 3:31 PM [facility] RDW-SD 42.1 36.0 - 50.0 fL 06/12/2022 3:31 PM [facility] RDW-CV 12.7 11.2 - 14.8 % 06/12/2022 3:31 PM [facility] Platelet Count 268 150 - 400 10? 3 /uL 06/12/2022 3:31 PM [facility] MPV 9.2(L) 9.4 - 12.9 fL 06/12/2022 3:31 PM [facility] nRBC Absolute 0.00 0 10? 3 /uL 06/12/2022 3:31 PM [facility] nRBC Auto 0.0 0 /100 WBC 06/12/2022 3:31 PM CDT [facility] Neutrophils % 59.1 35.0 - 70.0 % 06/12/2022 3:31 PM [facility] Lymphocytes % 31.6 20.0 - 43.0 % 06/12/2022 3:31 PM [facility] Monocytes % 7.5 5.0 - 13.0 % 06/12/2022 3:31 PM [facility] Eosinophils % 1.0 0.0 - 6.0 % 06/12/2022 3:31 PM T [facility] Basophil % 0.5 0.0 - 2.0 % 06/12/2022 3:31 PM T [facility] Neutrophils Absolute 5.65 1.60 - 7.00 10? 3 /uL 06/12/2022 3:31 PM T [facility] Lymphocyte Absolute 3.02 1.10 - 3.90 10? 3 /uL 06/12/2022 3:31 PM CDT [facility] Monocytes Absolute 0.72 0.26 - 1.07 10? 3 /uL 06/12/2022 3:31 PM T [facility] Eosinophils Absolute 0.10 0.00 - 0.47 10? 3 /uL 06/12/2022 3:31 PM T [facility] Basophils Absolute 0.05 0.00 - 0.08 10? 3 /uL 06/12/2022 3:31 PM [facility] Immature Granulocytes % 0.3 0.0 - 1.0 % 06/12/2022 3:31 PM T [facility] Immature Granulocytes Absolute 0.03 06/12/2022 3:31 PM [facility] Blood BLOOD SPECIMEN / Unknown Venipuncture / Unknown 06/12/2022 3:17 PM CDT 06/12/2022 3:26 PM CDT Bryan Wade MD LAB - HEMATOLOGY ORD ERABLES [facility] [address] [place] [address], [facility] [phone] * (ABNORMAL) COMPREHENSIVE METABOLIC PANEL (06/12/2022 3:17 PM [facility]) BUN 24 7 - 26 mg/dL 06/12/2022 3:54 PM [facility] Creatinine 1.18(H) 0.71 - 1.16 mg/dL 06/12/2022 3:54 PM [facility] Sodium 137 136 - 145 mmol/L 06/12/2022 3:54 PM [facility] Potassium 4.3 3.5 - 4.5 mmol/L 06/12/2022 3:54 PM [facility] Chloride 104 98 - 107 mmol/L 06/12/2022 3:54 PM [facility] CO2 27 22 - 29 mmol/L 06/12/2022 3:54 PM [facility] Glucose 93 70 - 115 mg/dL 06/12/2022 3:54 PM [facility] Calcium 8.7 8.4 - 10.2 mg/dL 06/12/2022 3:54 PM [facility] Protein Total 6.7 6.0 - 8.3 g/dL 06/12/2022 3:54 PM [facility] Albumin 3.6 3.4 - 5.0 g/dL 06/12/2022 3:54 PM [facility] Bilirubin Total 0.5 0.2 - 1.2 mg/dL 06/12/2022 3:54 PM [facility] Alkaline Phosphatase 48 40 - 150 U/L 06/12/2022 3:54 PM [facility] ALT 40 5 - 55 U/L 06/12/2022 3:54 PM [facility] AST 29 5 - 34 U/L 06/12/2022 3:54 PM [facility] Anion Gap 10 8 - 18 06/12/2022 3:54 PM [facility] BUN/Creatinine Ratio 20 7 - 23 06/12/2022 3:54 PM [facility] Osmolality Calculated 288 270 - 300 mOsm/kg 06/12/2022 3:54 PM [facility] Albumin/Globulin Ratio 1.2 1.1 - 2.3 06/12/2022 3:54 PM [facility] eGFR by CKD-EPI 77(L) >=90 mL/min/1.7 3 m2 06/12/2022 3:54 PM CDT [facility] Blood BLOOD SPECIMEN / Unknown Venipuncture / Unknown 06/12/2022 3:17 PM CDT 06/12/2022 3:26 PM CDT Bryan Wade MD LAB - CHEMISTRY [facility]A [facility]LAIN Performing Organization Address City/[facility] Co de Phone Number [facility] [address] [place] [address], [facility] [phone] * Digital Block (06/12/2022 11:51 AM CDT) Narrative Rain Reddy MD - 06/12/2022 11:51 AM CDT Rain Reddy MD ? 06/12/2022 ??3:41 PM Digital Block Date/Time: 06/12/2022 11:51 AM Performed by: Rain Reddy MD Authorized by: Rain Reddy MD Consent: ??Consent obtained: ??Verbal ??Consent given by: ??Patient ??Risks discussed: ??Infection, allergic reaction, nerve damage, intravascular injection and unsuccessful block ??Alternatives discussed: ??No treatment [place] protocol: ??Patient identity confirmed: ??Verbally with patient [...] no immediate complications Rain Reddy MD PROCEDURE/MINOR SOMMER RGICAL ORDERABLES
--- OUTSIDE RECORDS SUMMARY | 2024-04-28 20:33 | XMS_ITS | Clinical Summary ---
Author Organization [facility] [employer] Address [address] [place] [address] Care Team Providers Care Marketing Account Manager Name Role Phone Unavailable Primary Care Provider Unavailabl e Source Comments [facility] [employer],non-owned Affiliates and Associated Physician Practices is amultiple site organization consisting of ambulatory clinics and hospital sitesin [place], [place], [place] and [place]. This disclosure is being madepursuant to the Care Everywhere program and may not contain all information available regarding this patient. Last updated 17.[employer] Allergies No known active allergies Medications * [...] - 26 mg/dL 06/12/2022 3:54 PM [facility] Creatinine 1.18(H) 0.71 - 1.16 mg/dL 06/12/2022 3:54 PM [facility] Sodium 137 136 - 145 mmol/L 06/12/2022 3:54 PM [facility] Potassium 4.3 3.5 - 4.5 mmol/L 06/12/2022 3:54 PM [facility] Chloride 104 98 - 107 mmol/L 06/12/2022 3:54 PM [facility] CO2 27 22 - 29 mmol/L 06/12/2022 3:54 PM [facility] Glucose 93 70 - 115 mg/dL 06/12/2022 3:54 PM [facility] Calcium 8.7 8.4 - 10.2 mg/dL 06/12/2022 3:54 PM [facility] Protein Total 6.7 6.0 - 8.3 g/dL 06/12/2022 3:54 PM [facility] Albumin 3.6 3.4 - 5.0 g/dL 06/12/2022 3:54 PM [facility] Bilirubin Total 0.5 0.2 - 1.2 mg/dL 06/12/2022 3:54 PM [facility] Alkaline Phosphatase 48 40 - 150 U/L 06/12/2022 3:54 PM [facility] ALT 40 5 - 55 U/L 06/12/2022 3:54 PM [facility] AST 29 5 - 34 U/L 06/12/2022 3:54 PM [facility] Anion Gap 10 8 - 18 06/12/2022 3:54 PM [facility] BUN/Creatinine Ratio 20 7 - 23 06/12/2022 3:54 PM [facility] Osmolality Calculated 288 270 - 300 mOsm/kg 06/12/2022 3:54 PM [facility] Albumin/Globulin Ratio 1.2 1.1 - 2.3 06/12/2022 3:54 PM [facility] eGFR by CKD-EPI 77(L) >=90 mL/min/1.7 3 m2 06/12/2022 3:54 PM [facility] Blood BLOOD SPECIMEN / Unknown Venipuncture / Unknown 06/12/2022 3:17 PM CDT 06/12/2022 3:26 PM CDT Bryan Wade MD LAB - CHEMISTRY CORA MCCLAIN Performing Organization Address City/State/[facility] Co de Phone Number [facility] [address] [place] [address], [facility] [phone] from Last 3 Months or Most Recently Relevant to Health Maintenance
--- OUTSIDE RECORDS SUMMARY | 2024-04-28 20:33 | XMS_ITS | CONTINUITY OF CARE DOCUMENT ---
Author Name ladonna dougherty Address Unknown Organization [facility] Address [address] [place] [address] Phone [phone] Care Team Providers Care Gold Reclaimer Name Role Phone Aamir Sheets MD Unavailable INSURANCE PROVIDERS Payer name Policy type / Coverage type [place] [employer] party ID [id number] PAY [id number]
== END 2024-04-28 20:34 | disposition left against medical advice (07) ==
LOC: ANHED 20:30
DX: L03.115 Cellulitis of right lower limb (principal)
CPT/HCPCS: 99199

== ENCOUNTER 2024-08-17 10:33 | Emergency (ER) | payer OTHER, SELFPAY ==
--- OUTSIDE RECORDS SUMMARY | 2024-08-17 10:34 | XMS_ITS | CONTINUITY OF CARE DOCUMENT ---
Author Name ladonna dougherty Address Unknown Organization [facility] Address [address] [place] [address] Phone [phone] Care Team Providers Care Bioinformatics Software Engineer Name Role Phone Aamir Sheets MD Unavailable [phone] INSURANCE PROVIDERS Payer name Policy type / Coverage type [place] red green party ID [id number] PAY [id number]
--- OUTSIDE RECORDS SUMMARY | 2024-08-17 10:34 | XMS_ITS | Clinical Summary ---
Author Organization [facility] Address [address] [place] [address] Care Team Providers Care Dental Assisting Instructor Name Role Phone Unavailable Primary Care Provider Unavailabl e Source Comments [facility],non-owned Affiliates and Associated Physician Practices is amultiple site organization consisting of ambulatory clinics and hospital sitesin [place], [place], [place] and [place]. This disclosure is being madepursuant to the Care Everywhere program and may not contain all informatio navailable regarding this patient. Last updated 17.Definigen Allergies No known active allergies Medications * Be aware that medications may not be up to date on this document. Alwaysverify current medications with the patient. 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 Gender Identity Not on file Sexual Orientation Not on file Last Filed Vital Signs Vital Sign Reading Time Taken Comments Blood Pressure 135/93 07/25/2022 1:45 PM CDT Pulse 89 07/25/2022 1:45 PM CDT Temperature 37 C (98.6 F) 07/25/2022 1:45 PM CDT Respiratory Rate 18 [...] of 3 - 19+ 3-dose series) 1993 COVID-19 VACCINE ( - 2023-2 5 season) 2023 DEPRESSION SCREENING 03/27/2024 ZOSTER VACCINE (1 of 2) 2024 INFLUENZA VACCINE (Season Ended) 2024 SCREENING FOR DIABETES 06/12/2025 06/12/2022 DTAP/TDAP/TD VACCINES (2 - T d or Tdap) 06/12/2032 06/12/2022 HIB VACCINE Aged Out No longer eligi ble based on patient's age to complete this topic HPV VACCINE Aged Out No longer eligi ble based on patient's age to complete this topic MENINGOCOCCAL (Group B) VACC INE SHARED DECISION-MAKING Aged Out No longer eligibl e based on patient's age to complete this topic MENINGOCOCCAL GROUPS A/C/Y/W VACCINE Aged Out No longer eligible b ased on patient's age to complete this topic Procedures Procedure Name Priority Date/Time Associated Diagnosis Comments COMPREHENSIVE METABOLIC PANEL STAT 06/12/2022 3:17 PM CDT from Last 3 Months or Most Recently Relevant to Health Maintenance Results * (ABNORMAL) COMPREHENSIVE METABOLIC PANEL (06/12/2022 3:17 PM CDT) BUN 24 7 - 26 mg/dL 06/12/2022 3:54 PM [facility] Creatinine 1.18(H) 0.71 - 1.16 mg/dL 06/12/2022 3:54 PM [facility] Sodium 137 136 - 145 mmol/L 06/12/2022 3:54 PM [facility] Potassium 4.3 3.5 - 4.5 mmol/L 06/12/2022 3:54 PM [facility] Chloride 104 98 - 107 mmol/L 06/12/2022 3:54 PM [facility] CO2 27 22 - 29 mmol/L 06/12/2022 3:54 PM [facility] Glucose 93 70 - 115 mg/dL 06/12/2022 3:54 PM [facility] Calcium 8.7 8.4 - 10.2 mg/dL 06/12/2022 3:54 PM [facility] Protein Total 6.7 6.0 - 8.3 g/dL 06/12/2022 3:54 PM [facility] Albumin 3.6 3.4 - 5.0 g/dL 06/12/2022 3:54 PM [facility] Bilirubin Total 0.5 0.2 - 1.2 mg/dL 06/12/2022 3:54 PM [facility] Alkaline Phosphatase 48 40 - 150 U/L 06/12/2022 3:54 PM [facility] ALT 40 5 - 55 U/L 06/12/2022 3:54 PM [facility] AST 29 5 - 34 U/L 06/12/2022 3:54 PM [facility] Anion Gap 10 8 - 18 06/12/2022 3:54 PM [facility] BUN/Creatinine Ratio 20 7 - 23 06/12/2022 3:54 PM [facility] Osmolality Calculated 288 270 - 300 mOsm/kg 06/12/2022 3:54 PM [facility] Albumin/Globulin Ratio 1.2 1.1 - 2.3 06/12/2022 3:54 PM [facility] eGFR by CKD-EPI 77(L) >=90 mL/min/1.7 3 m2 06/12/2022 3:[address] [facility] Blood BLOOD SPECIMEN / Unknown Venipuncture / Unknown 06/12/2022 3:17 PM CDT 06/12/2022 3:26 PM CDT Bryan Wade MD LAB - CHEMISTRY ORDERABLES Final Result Performing Organization Address [facility] Co de Phone Number [facility] [address] [place] [address], [facility] [phone] from Last 3 Months or Most Recently Relevant to Health Maintenance Insurance
--- OUTSIDE RECORDS SUMMARY | 2024-08-17 11:08 | XMS_ITS | CONTINUITY OF CARE DOCUMENT ---
Author Name ladonna dougherty Address Unknown Organization [facility] Address [address] [place] [address] Phone [phone] Care Team Providers Care Mini Shifter Name Role Phone Aamir Sheets MD Unavailable [phone] INSURANCE PROVIDERS Payer name Policy type / Coverage type [place] red republican ID [id number] PAY [id number]
--- OUTSIDE RECORDS SUMMARY | 2024-08-17 11:08 | XMS_ITS | Clinical Summary ---
Author Organization [facility] Address [address] [place] [address] Care Team Providers Care Dredge Deckhand Name Role Phone Unavailable Primary Care Provider Unavailabl e Source Comments [facility],non-owned Affiliates and Associated Physician Practices is amultiple site organization consisting of ambulatory clinics and hospital sitesin [place], [place], [place] and [place]. This disclosure is being madepursuant to the Care Everywhere program and may not contain all informatio navailable regarding this patient. 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 Gender Identity Not on file Sexual Orientation [...] 7 - 26 mg/dL 06/12/2022 3:54 PM [facility] Creatinine 1.18(H) 0.71 - 1.16 mg/dL 06/12/2022 3:54 PM [facility] Sodium 137 136 - 145 mmol/L 06/12/2022 3:54 PM [facility] Potassium 4.3 3.5 - 4.5 mmol/L 06/12/2022 3:54 PM [facility] Chloride 104 98 - 107 mmol/L 06/12/2022 3:54 PM [facility] CO2 27 22 - 29 mmol/L 06/12/2022 3:54 PM [facility] Glucose 93 70 - 115 mg/dL 06/12/2022 3:54 PM [facility] Calcium 8.7 8.4 - 10.2 mg/dL 06/12/2022 3:54 PM [facility] Protein Total 6.7 6.0 - 8.3 g/dL 06/12/2022 3:54 PM [facility] Albumin 3.6 3.4 - 5.0 g/dL 06/12/2022 3:54 PM [facility] Bilirubin Total 0.5 0.2 - 1.2 mg/dL 06/12/2022 3:54 PM [facility] Alkaline Phosphatase 48 40 - 150 U/L 06/12/2022 3:54 PM [facility] ALT 40 5 - 55 U/L 06/12/2022 3:54 PM [facility] AST 29 5 - 34 U/L 06/12/2022 3:54 PM [facility] Anion Gap 10 8 - 18 06/12/2022 3:54 PM [facility] BUN/Creatinine Ratio 20 7 - 23 06/12/2022 3:54 PM [facility] Osmolality Calculated 288 270 - 300 mOsm/kg 06/12/2022 3:54 PM [facility] Albumin/Globulin Ratio 1.2 1.1 - 2.3 06/12/2022 3:54 PM [facility] eGFR by CKD-EPI 77(L) >=90 mL/min/1.7 3 m2 06/12/2022 3:54 PM CDT [facility] Blood BLOOD SPECIMEN / Unknown Venipuncture / Unknown 06/12/2022 3:17 PM CDT 06/12/2022 3:26 PM CDT Bryan Wade MD LAB - CHEMISTRY ORDERABLES Final Result Performing Organization Address [facility] Co de Phone Number [facility] [address] [place] [address], [facility] [phone] from Last 3 Months or Most Recently Relevant to Health Maintenance Insurance
[2024-08-17 11:18] VITALS: RESP 18; O2SAT 99
--- NOTE | 2024-08-17 11:20 | ED.GENADULT ---
HPI - General Adult General Chief complaint: Allergic Reaction Stated complaint: POISON OAK Time Seen by Provider: 08/17/24 11:04 History of Present Illness HPI narrative: 48-year-old male present to the emergency department for evaluation for concern for poison oak exposure. Patient states he was exposed approximately 5 days ago. Patient began having rash approximately 2 days ago. Patient does have rash on left arm forehead and legs. Patient is a smoker and does have some shortness breath but denies any change in shortness of breath. Patient has not been taking any medications for this at home. Patient does have areas of excoriation on the left arm. Patient is not diabetic Related Data Allergies Allergy/AdvReac Type Severity Reaction Status Date / Time No Known Allergies Allergy Verified 08/17/24 10:35 Review of Systems Review of Systems: All systems reviewed & are unremarkable except as noted in HPI and below Exam Narrative: APPEARANCE: Well appearing, no pain, no distress, well-nourished. HEAD: normocephalic, atraumatic. EYES: PERRLA/EOMI, conjunctivae clear. NOSE: Normal no drainage EARS:TMS clear with good light reflex. THROAT: Pharynx clear, no exudate. NECK: Supple. No adenopathy, no masses. RESPIRATORY: Airway patent, respirations nonlabored. Clear to auscultation bilaterally, no rales, rhonchi, wheezing. CARDIOVASCULAR: Regular rate and rhythm without murmurs rubs or gallops. ABDOMINAL: Soft, nontender, nondistended, normal bowel sounds MUSCULOSKELETAL: Moves all extremities. Strength/ROM intact, No edema, No calf tenderness. NEURO: Alert. Cranial nerves II through XII intact. Good gait. Good coordination SKIN: Areas consistent with contact dermatitis on forehead left arm. Areas of excoriation with no evidence of underlying infection or cellulitis Course Vital Signs Vital signs: Vital Signs Respiratory Rate 18 08/17/24 11:18 Pulse Oximetry 99 08/17/24 11:18 Oxygen Delivery Room Air 08/17/24 11:18 Pulse Rate 70 08/17/24 11:51 Respiratory Rate 18 08/17/24 11:51 Blood Pressure 141/70 H 08/17/24 11:51 Pulse Oximetry 98 08/17/24 11:51 Oxygen Delivery Room Air 08/17/24 11:18 Medical Decision Making [facility] Narrative Medical decision making narrative: 48-year-old male presents emergency department for evaluation for exposure to poison oak. Patient has no evidence of respiratory distress and lungs are clear to auscultation. Patient was treated with a 1 milligram/kilogram dose of triamcinolone and 12 mg of betamethasone. Dual therapy was found to show left side effects than oral prednisone. Patient was also advised to take Benadryl as needed and to avoid further excoriation. Patient was encouraged close follow-up with primary care physician. All questions concerns were addressed. Differential Diagnosis Differential Diagnosis: Placed IV, contact dermatitis, poison oak, cellulitis Vital Signs Vital Signs: Vital Signs Respiratory Rate 18 08/17/24 11:18 Pulse Oximetry 99 08/17/24 11:18 Oxygen Delivery Room Air 08/17/24 11:18 Pulse Rate 70 08/17/24 11:51 Respiratory Rate 18 08/17/24 11:51 Blood Pressure 141/70 H 08/17/24 11:51 Pulse Oximetry 98 08/17/24 11:51 Oxygen Delivery Room Air 08/17/24 11:18 Lab Data Labs: Lab Results 08/17/24 Range/Units 11:21 POC Capillary Glucose 113 H (65-105) mg/dl Discharge Plan Discharge Clinical Impression: Contact dermatitis, Contact dermatitis due to poison oak Patient Disposition: Home Condition: Stable Instructions: Antibiotic Form, Contact Dermatitis (ED) Additional Instructions: You were treated with IM triamcinolone and IM betamethasone in the emergency department. You are not being discharged home with any oral steroids. Benadryl as needed at home for further itching. Avoid scratching the lesions. Have close follow-up with your primary care physician. If you have any worsening symptoms then please call or return to the emergency department. Patient Language: [place] Prescriptions: No Action cephalexin 500 mg capsule 500 mg PO Q6H Qty: 40 0RF ibuprofen 600 mg tablet 600 mg PO Q6H PRN (Reason: pain) Qty: 20 0RF Follow-up/Referrals: Ruslan Herrera MD [Primary Care Provider] -
[2024-08-17 11:23] LABS: Glucose Point of Care 113 mg/dl (65-105)
[2024-08-17] MEDS: BETAMETHASONE SOD PHOS/ACETATE 30 MG/5 ML VIAL 12 MG IM (11:40)
[2024-08-17] MEDS: TRIAMCINOLONE ACET INJ 40 MG/ML VIAL 100 MG IM (11:41)
[2024-08-17 11:51] VITALS: BP 141/70; PULSE 70; RESP 18; O2SAT 98
== END 2024-08-17 11:52 | disposition home or self-care (01) ==
PROVIDERS: Emergency Provider Emergency Medicine; PCP Emergency Medicine
DX: L25.5 Unspecified contact dermatitis due to plants, except food (principal)
CPT/HCPCS: 82948; 96372; 99284; J0702; J3301